=== PATIENT | male | born 1985 | race African-American/Black ===

== ENCOUNTER 2017-01-19 12:28 | Emergency (ER) | payer MEDICAID, MEDICARE, OTHER ==
[~2017-01-19] VITALS: Ht 180.3 cm; Wt 85.0 kg
[~2017-01-19 12:28] MED LIST: DICY1TAB26 PO; PANT20 PO; PROM25SU8 PO
[2017-01-19 12:29] VITALS: BP 143/72; PULSE 96; RESP 18; TEMP 98.2; O2SAT 97
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
[2017-01-19] MEDS ORDERED: IBUP800T23 PO (13:14)
[2017-01-19] MEDS ORDERED: IBUPROFEN 800 MG TAB PO ONE (13:15)
--- NOTE | 2017-01-19 13:30 | RADRPT ---
EXAM DATE/TIME: 01/19/2017 13:20 [facility] COMPARISON: No previous studies available for comparison. INDICATIONS : Right wrist pain, fell MEDICAL HISTORY : None. SURGICAL HISTORY : None. ENCOUNTER: Initial ACUITY: 2 days PAIN SCORE: 3/10 LOCATION: Right Wrist FINDINGS: No definite fractures, or dislocations are identified. No definite lytic or sclerotic lesion is seen . CONCLUSION: Unremarkable study. Ilsa Thomas MD on January 19, 2017 at 13:29 Board Certified Radiologist. This report was verified electronically.
--- NOTE | 2017-01-19 13:30 | RADRPT ---
EXAM DATE/TIME: 01/19/2017 13:18 [facility] COMPARISON: No previous studies available for comparison. INDICATIONS : Right ankle pain, fell MEDICAL HISTORY : None. SURGICAL HISTORY : None. ENCOUNTER: Initial ACUITY: 2 days PAIN SCORE: 2/10 LOCATION: Right Ankle FINDINGS: No definite fractures, or dislocations are identified. No definite lytic or sclerotic lesion is seen . Soft tissue swelling is identified anteriorly underneath the area of clinical concern and pain. CONCLUSION: Soft tissue swelling and no definite fracture for efren. Ilsa Thomas MD on January 19, 2017 at 13:28 Board Certified Radiologist. This report was verified electronically.
== END 2017-01-19 13:56 | disposition home or self-care (01) ==
LOC: NEPK 12:28
DX: S69.91XA Unspecified injury of right wrist, hand and finger(s), initial encounter (principal); S99.911A Unspecified injury of right ankle, initial encounter; V19.9XXA Pedal cyclist (driver) (passenger) injured in unspecified traffic accident, initial encounter
CPT/HCPCS: 73110; 73610; 99284; L1906; L3908

== ENCOUNTER 2017-08-25 16:24 | Emergency (ER) | payer MEDICARE ==
[~2017-08-25] VITALS: Ht 180.3 cm; Wt 84.0 kg
[~2017-08-25 16:24] MED LIST changes: -DICY1TAB26 PO; +IBUP1TAB7 PO; -PANT20 PO; -PROM25SU8 PO
[2017-08-25 16:31] VITALS: BP 141/87; PULSE 69; RESP 18; TEMP 97.8; O2SAT 100
--- NOTE | 2017-08-25 19:58 | PD ---
HPI Chief Complaint: Oral / Dental Pain or Problem Time Seen by Provider: 19:56 Travel History International Travel<30 days: No Contact w/Intl Traveler<30days: No Traveled to known affect area: No History of Present Illness HPI 32-year-old black male presents emergency department with complaints of dental pain. He states that he has had cavity in his right lower mandible for some time. Over the past week it has become increasingly painful and swollen. Symptoms are moderate. No alleviating factors. No exacerbating factors. He denies any nausea vomiting. No difficulty swallowing. History Past Medical Histgory Medical History: Denies Significant Hx Past Surgical History Narrative Surgical Lymph node biopsies Social History Alcohol Use: Yes (ONCE A MONTH) Tobacco Use: Yes (2ppd) Allergies-Medications (Allergen,Severity, Reaction): Coded Allergies: No Known Allergies (Verified Adverse Reaction, Unknown, 08/25/17) Reported Meds & Prescriptions Reported Meds & Active Scripts Active Diclofenac Sodium DR (Diclofenac Sodium) 75 Mg Tabdr 75 Mg PO BID White (Hydrocodone-Acetaminophen) 5 Mg-325 Mg Tab 1 Tab PO Q6H PRN 3 Days Augmentin (Amoxicillin-Clavulanate) 875-125 Mg Tab 1 Tab PO BID 10 Days Ibuprofen 800 Mg Tab 800 Mg PO Q6HR PRN Review of Systems Except as stated in HPI: all other systems reviewed are Neg Physical Exam Narrative GENERAL: Well-developed, well-nourished in no acute distress. Nontoxic appearing. HEAD: Normocephalic, atraumatic. EYES: Pupils equal round and reactive. Extraocular motions intact. No scleral icterus. No injection or drainage. ENT: TMs clear without erythema. The external auditory canals clear. Nose: clear . Posterior pharynx is pink and moist. No tonsillar edema or exudate. Uvula midline. Airway patent. Patient is a large dental carry in tooth #32. There is gingival erythema and edema. NECK: Trachea midline.Supple, nontender, moves head freely. No central bony tenderness or spasm. CARDIOVASCULAR: Regular rate and rhythm without murmurs, gallops, or rubs. RESPIRATORY: Clear to auscultation. Breath sounds equal bilaterally. No wheezes , rales, or rhonchi. GASTROINTESTINAL: Abdomen soft, non-tender, nondistended. No hepato-splenomegaly , or palpable masses. No guarding. EXTREMITIES: No clubbing, cyanosis, or edema. No joint tenderness, effusion, or edema noted. BACK: Nontender without deformity or crepitance. No flank tenderness. Data Data Last Documented VS Vital Signs Date Time Temp Pulse Resp B/P (MAP) Pulse Ox O2 Delivery O2 Flow Rate FiO2 08/25/17 16:31 97.8 69 18 141/87 (105) 100 Orders Orders Amoxicil-Clavulanate (Augmentin) (08/25/17 20:15) Acetamin-Hydrocod 325-5 Mg (White 5-325 (08/25/17 20:15) Ed Discharge Order (08/25/17 20:09) MDM Medical Screen Exam Complete: Yes Emergency Medical Condition: No Differential Diagnosis MDM: Moderate Differential diagnoses: Dental abscess, dental caries, osteitis, cellulitis Narrative Course A medical screening exam was performed: At the time of evaluation the presenting medical condition was determined not to be of an emergent nature. The patient was given the option of receiving additional care, but declined. Patient was given options for additional community resources from which to obtain care. The Patient Has Been advised to seek medical attention for their presenting complaint. The patient has been advised to return to the ER at any time if an emergent condition develops. The patient is opted to stay. This is dental abscess Primary Impression: Dental abscess Patient Instructions: Narcotic given in the ED, General Instructions Additional Instructions: Rest. Saltwater gargles. Geyser oil on cotton balls. Diclofenac, White, Augmentin follow-up with a dentist as soon as possible. And return to the ER if any problems. Scripts Diclofenac Sodium DR (Diclofenac Sodium DR) 75 Mg Tabdr 75 MG PO BID, #20 TAB 0 Refills Prov: Farooq Sepulveda MD 08/25/17 Hydrocodone-Acetaminophen (White) 5 Mg-325 Mg Tab 1 TAB PO Q6H Y for PAIN for 3 Days, #12 TAB 0 Refills Prov: Farooq Sepulveda MD 08/25/17 Amoxicillin-Clavulanate (Augmentin) 875-125 Mg Tab 1 TAB PO BID for Infection for 10 Days, #20 TAB 0 Refills Prov: Farooq Sepulveda MD 08/25/17 Disposition: 01 DISCHARGE HOME Condition: Stable Xavier Newell Aug 25, 2017 19:58
[2017-08-25] MEDS ORDERED: AUGM875T3 PO (20:10)
[2017-08-25] MEDS ORDERED: NORC5TAB PO (20:10)
[2017-08-25] MEDS ORDERED: DICL75TA PO (20:10)
[2017-08-25] MEDS ORDERED: ACETAMINOPHEN/HYDROcodone 325 MG/5 MG TAB PO ONE (20:15)
[2017-08-25] MEDS ORDERED: AMOXICILLIN/CLAVULANATE K 875 MG TAB PO ONE (20:15)
== END 2017-08-25 20:29 | disposition home or self-care (01) ==
LOC: NEPK 16:24
DX: K04.7 Periapical abscess without sinus (principal); F17.210 Nicotine dependence, cigarettes, uncomplicated
CPT/HCPCS: 99283